=== PATIENT | female | born 1960 | race Caucasian/White ===

== ENCOUNTER 2023-09-08 08:22 | Outpatient (CLI) | payer BC, SELFPAY ==
--- NOTE | 2023-09-08 10:20 | W.ANESCHARGE ---
Anesthesia Charges Start Date/Time Anesthesia Start Date: 09/08/23 Anesthesia Start Time: 09:23 Stop Date/Time Anesthesia Stop Date: 09/08/23 Anesthesia Stop Time: 10:24
--- NOTE | 2023-09-08 10:29 | W.ANESCHARGE ---
Anesthesia Charges Start Date/Time Anesthesia Start Date: 09/08/23 Anesthesia Start Time: 09:23 Stop Date/Time Anesthesia Stop Date: 09/08/23 Anesthesia Stop Time: 10:24
== END 2023-09-08 08:23 | disposition home or self-care (01) ==
PROVIDERS: PCP Nurse Practitioner Family; Visit Provider Internal Medicine Gastroenterology
DX: Z12.11 Encounter for screening for malignant neoplasm of colon (principal); K63.5 Polyp of colon; R10.13 Epigastric pain; K31.89 Other diseases of stomach and duodenum; K21.9 Gastro-esophageal reflux disease without esophagitis; Z80.0 Family history of malignant neoplasm of digestive organs
CPT/HCPCS: 00813; 43239; 45380; 45381; 45385; 88305; J2704; J3490

== ENCOUNTER 2024-09-10 11:28 | Outpatient (CLI) | payer BC, SELFPAY ==
--- NOTE | 2024-09-10 12:47 | P.ANES_ITS ---
Anesthesia Charges Start Date/Time Anesthesia Start Date: 09/10/24 Anesthesia Start Time: 12:27 Stop Date/Time Anesthesia Stop Date: 09/10/24 Anesthesia Stop Time: 12:51 Coding CPT Codes CPT Codes: ANES LWR INTST NDSC NOS - [id number] ([id number]) P3 - PATIENT W/SEVERE SYS DISEASE, QK - FRONT END DRUPAL DEVELOPER 2-4 CNCRNT ANES PROC, QX - GUIDE DOMESTIC TOUR SVC W/ MD MED DIRECTION
--- NOTE | 2024-09-10 12:47 | W.ANESCHARGE ---
Anesthesia Charges Start Date/Time Anesthesia Start Date: 09/10/24 Anesthesia Start Time: 12:27 Stop Date/Time Anesthesia Stop Date: 09/10/24 Anesthesia Stop Time: 12:51 Coding CPT Codes CPT Codes: ANES LWR INTST NDSC NOS - [id number] ([id number]) P3 - PATIENT W/SEVERE SYS DISEASE, QK - GRAVE DIGGER 2-4 CNCRNT ANES PROC, QX - STRUCTURAL IRONWORKER SVC W/ MD MED DIRECTION
--- NOTE | 2024-09-10 12:51 | P.ANES_ITS ---
Anesthesia Charges Start Date/Time Anesthesia Start Date: 09/10/24 Anesthesia Start Time: 12:27 Stop Date/Time Anesthesia Stop Date: 09/10/24 Anesthesia Stop Time: 12:51 Coding CPT Codes CPT Codes: ANES LWR INTST NDSC NOS - [id number] ([id number]) QK - SPICE GRINDER 2-4 CNCRNT ANES PROC, QX - STITCH RUBBER SVC W/ MED DIRECTION, P3 - PATIENT W/SEVERE SYS DISEASE
--- NOTE | 2024-09-10 12:51 | W.ANESCHARGE ---
Anesthesia Charges Start Date/Time Anesthesia Start Date: 09/10/24 Anesthesia Start Time: 12:27 Stop Date/Time Anesthesia Stop Date: 09/10/24 Anesthesia Stop Time: 12:51 Coding CPT Codes CPT Codes: ANES LWR INTST NDSC NOS - [id number] ([id number]) QK - SENIOR POWER PLANT OPERATOR 2-4 CNCRNT ANES PROC, QX - HEALTH EDUCATION AIDE SVC W/ MED DIRECTION, P3 - PATIENT W/SEVERE SYS DISEASE
== END 2024-09-10 11:29 | disposition home or self-care (01) ==
LOC: OP CLINIC 11:29
PROVIDERS: PCP Nurse Practitioner Family; Visit Provider Internal Medicine Gastroenterology
DX: Z12.11 Encounter for screening for malignant neoplasm of colon (principal); Z86.0101 Personal history of adenomatous and serrated colon polyps; D12.5 Benign neoplasm of sigmoid colon
CPT/HCPCS: 00811; 00812; 45385; J2704